=== PATIENT | female | born 1990 | race Caucasian/White ===

== ENCOUNTER 2019-01-06 21:34 | Inpatient (IN) | payer OTHER ==
[~2019-01-06] VITALS: Ht 167.6 cm; Wt 92.5 kg
[~2019-01-06 21:34] MED LIST: FERR27TA PO; PREN1TAB49 PO
--- NOTE | 2019-01-06 22:27 | ERD ---
ER Documentation Chief Complaint Chief Complaint s/p delivery 4weeks ago. c/o right breast pain and fever. HPI The patient is a 28-year-old female, presenting to the ER because of acute right breast pain/redness for 1day. She complains of fever today, denies facial pain, ear pain, sore throat, cough, nasal congestion, neck pain, chest pain, dyspnea, abdominal pain, vomiting, dysuria, diarrhea. She does not smoke nor drink. She had a spontaneous vaginal delivery about 4 weeks ago and is currently breast feed her Past medical history: None Past surgical history: Appendectomy ROS All systems reviewed and are negative except as per history of present illness. Medications Home Meds Reported Medications Vits W-Ca,Fe,Fa(<1MG) () 1 Tab Tablet, 1 TAB PO DAILY 11/07/11 Discontinued Reported Medications Ferrous Sulfate (Iron) 1 Tab Tablet, 1 TAB PO DAILY 11/07/11 Allergies Allergies: Coded Allergies: No Known Allergy (Verified , 01/06/19) Physical Exam Vitals Vital Signs Date Temp Pulse Resp B/P (MAP) Pulse Ox O2 O2 Flow FiO2 Time Delivery Rate 01/07/19 99.0 103 18 99/56 (70) 96 Room Air 02:10 01/07/19 99.3 96 18 100/56 97 Room Air 01:48 (71) 01/07/19 101.5 104 18 123/92 96 Room Air 01:02 (102) 01/06/19 104.1 23:21 01/06/19 104.1 23:21 01/06/19 104.1 113 20 160/84 100 Room Air 23:02 (109) 01/06/19 104.5 130 20 134/64 96 21:37 (87) Physical Exam Const: No acute distress. Head: Atraumatic. Eyes: Normal Conjunctiva. ENT: Normal External Ears, Nose and Mouth. Bilateral tympanic membranes and oropharynx are within normal limit Neck: Full range of motion. No meningismus. Resp: Clear to auscultation bilaterally. Cardio: Regular tachycardic. Right breast is erythematous, warm to touch, normal milky nipple discharge Abd: Soft, non distended, normal bowel sounds, non tender. Skin: No petechiae or rashes. Back: No midline or flank tenderness. Ext: No cyanosis, or edema. Neur: Awake and alert. No focal deficit Psych: Normal Mood and Affect. Result Diagram: 01/06/19220901/06/192209 Results 24 hrs Laboratory Tests Test 01/06/19 22:05 01/06/19 22:10 01/07/19 00:12 POC Venous Lactate 1.4 mmol/L 1.0 mmol/L White Blood Count 19.9 10^3/ul Red Blood Count 4.60 10^6/ul Hemoglobin 13.5 g/dl Hematocrit 40.3 % Mean Corpuscular Volume 87.6 fl Mean Corpuscular Hemoglobin 29.3 pg Mean Corpuscular Hemoglobin Concent 33.5 g/dl Red Cell Distribution Width 13.1 % Platelet Count 282 10^3/UL Mean Platelet Volume 10.9 fl Immature Granulocytes % 0.900 % Neutrophils % 82.7 % Lymphocytes % 8.1 % Monocytes % 7.1 % Eosinophils % 0.8 % Basophils % 0.4 % Nucleated Red Blood Cells % 0.0 /100WBC Immature Granulocytes # 0.180 10^3/ul Neutrophils # 16.5 10^3/ul Lymphocytes # 1.6 10^3/ul Monocytes # 1.4 10^3/ul Eosinophils # 0.2 10^3/ul Basophils # 0.1 10^3/ul Nucleated Red Blood Cells # 0.0 10^3/ul Prothrombin Time 13.3 Sec Prothrombin Time Ratio 1.0 INR International Normalized Ratio 1.00 Activated Partial Thromboplast Time 31.9 Sec Urine Color YELLOW Urine Clarity SLIGHTLY CLOUDY Urine pH 6.0 Urine Specific [place] 1.024 Urine Ketones NEGATIVE mg/dL Urine Nitrite NEGATIVE mg/dL Urine Bilirubin NEGATIVE mg/dL Urine Urobilinogen 1+ mg/dL Urine Leukocyte Esterase 2+ [place] Urine Microscopic RBC 7 /HPF Urine Microscopic WBC 12 /HPF Urine Squamous Epithelial Cells FEW /HPF Urine Hemoglobin 2+ mg/dL Urine Glucose NEGATIVE mg/dL Urine Total Protein NEGATIVE mg/dl Sodium Level 139 mmol/L Potassium Level 3.8 mmol/L Chloride Level 103 mmol/L Carbon Dioxide Level 24 mmol/L Anion Gap 12 Blood Urea Nitrogen 15 mg/dl Creatinine 0.86 mg/dl Est Glomerular Filtrat Rate mL/min > 60 mL/min Glucose Level 121 mg/dl Calcium Level 9.0 mg/dl Total Bilirubin 0.2 mg/dl Direct Bilirubin 0.00 mg/dl Indirect Bilirubin 0.2 mg/dl Aspartate Amino Transf (AST/SGOT) 37 IU/L Alanine Aminotransferase (ALT/SGPT) 24 IU/L Alkaline Phosphatase 98 IU/L Troponin I < 0.012 ng/ml Total Protein 8.5 g/dl Albumin 4.5 g/dl Globulin 4.00 g/dl Albumin/Globulin Ratio 1.12 Current Medications Medications Dose Sig/Cecilia Start Time Status Last (Trade) Ordered Route PRN Stop Time Admin Dose Reason Admin 650 mg ONCE STAT 01/06/19 DC 01/06/19 Acetaminophen PO 23:13 01/06/19 23:21 (Tylenol 23:15 Tab) Sodium 1,780 ml BOLUS OVER 2 01/06/19 DC 01/06/19 Chloride HOURS STAT 23:13 01/06/19 23:22 (NS) IV* 23:15 Ibuprofen 600 mg ONCE ONCE 01/06/19 DC 01/06/19 (Motrin) PO 23:30 01/06/19 23:21 23:31 Ceftriaxone 50 ml @ ONCE ONCE 01/06/19 DC 01/06/19 Sodium 100 mls/hr IVPB 23:30 01/06/19 23:21 23:59 Sodium 1,000 ml @ Q1H ONCE 01/07/19 Chloride 1,000 mls/hr IV 02:30 01/07/19 03:29 Procedures/[place] [id number] Radiology Main Line: [phone] DIAGNOSTIC IMAGING REPORT Patient: CARLOS DAY : 1990 Age: 28 Sex: F MR #: [id number] DOS: 01/06/19 2313 Ordering MD: LAILA FIGUEROA MD Location: E/R Room/Bed: PROCEDURE: Chest. CLINICAL INDICATION: Chest pain. TECHNIQUE: Single frontal view of the chest was obtained. COMPARISON: None. FINDINGS: The cardiac silhouette is within normal limits. The aortic arch is unremarkable. There is no focal consolidation, vascular congestion or pleural effusion. There is no pneumothorax. IMPRESSION: No evidence for active cardiopulmonary disease. .Jim Coyne MD, MD Date Time Electronically viewed and signed by .Jim Coyne MD, on 01/07/2019 00:40 .T/ CC: LAILA FIGUEROA MD [id number] EKG: Read by emergency physician Rate/Rhythm: Sinus tachycardia 115 beats/min QRS, ST, T-waves: No ST elevation, no T inversion Impression: Abnormal EKG MEDICAL MAKING DECISION: The patient is a 28-year-old female, presenting with acute sepsis due to acute cystitis and acute right mastitis. She was treated with Motrin and Tylenol for fever, Rocephin 1 gm IV, IBW IVF (about 2L NS) but her BP was 100/56 after IVF, she was therefore treated with the 3rd L NS. Clinically she looks well, able to ambulate well independently and felt much better The differential diagnoses considered include but are not limited to pneumonia, UTI, pyelonephritis Departure Diagnosis: Primary Impression: Sepsis Additional Impressions: UTI (urinary tract infection) Mastitis Condition: Stable Comments I discussed the findings with the patient. I discussed the patient with the hospitalist Dr Majano at 3:05 am . who was made aware of the lab, the treatment, the patient condition. The patient is admitted to Tel Disclaimer: Inadvertent spelling and grammatical errors are likely due to EHR/dictation software use and do not reflect on the overall quality of patient care. Also, please note that the electronic time recorded on this note does not necessarily reflect the actual time of the patient encounter. LAILA FIGUEROA MD Jan 06, 2019 22:27
[2019-01-06] MEDS ORDERED: ACETAMINOPHEN 325 MG TAB PO STA (23:13)
[2019-01-06] MEDS ORDERED: SODIUM CHLORIDE 0.9% 1L BAG IV* STA (23:13)
[2019-01-06] MEDS ORDERED: IBUPROFEN 600 MG TAB PO ONE (23:30)
[2019-01-06] MEDS ORDERED: CEFTRIAXONE 1 GM/50 ML (PMX) 50 ML IVPB ONE (23:30)
[2019-01-07] VITALS (9 sets, daily range): BP systolic 105–129; BP diastolic 58–77; PULSE 60–105; RESP 19–20; Ht 167.6 cm; Wt 92.5 kg
[2019-01-07] MEDS ORDERED: SOD CHLORIDE 0.9% 1,000 ML IV ONE (02:30)
[2019-01-07] MEDS ORDERED: ACETAMINOPHEN 325 MG TAB PO PRN (03:30)
[2019-01-07] MEDS ORDERED: VANCOMYCIN 1 GM (PMX) 250 ML IVPB ONE (03:30)
[2019-01-07] MEDS ORDERED: DOCUSATE SODIUM 100 MG CAP PO PRN (03:30)
[2019-01-07] MEDS ORDERED: ONDANSETRON 4 MG INJ IV PRN (03:30)
[2019-01-07] MEDS ORDERED: IBUPROFEN 600 MG TAB PO PRN (03:30)
[2019-01-07] MEDS ORDERED: BISACODYL (EC) 5 MG TAB PO PRN (03:30)
[2019-01-07] MEDS ORDERED: NACL 0.9% 3 ML SYG IV SCH (03:30)
--- NOTE | 2019-01-07 03:48 | HP ---
Date/Time of Note Date/Time of Note DATE: 01/07/19 TIME: 03:42 Assessment/Plan VTE Prophylaxis SCD applied (from Nsg): Yes Pharmacological prophylaxis: NA/contraindicated Pharm contraindication: low risk/ambulating Lines/Catheters IV Catheter Type (from Nrsg): Saline Lock Assessment/Plan Hospital Course This is a 28-year-old female being admitted to the telemetry floor for: #1 septic shock: Initially patient presented with normal blood pressures however through her hospital stay she did go hypotensive. She is currently receiving IV fluid bolus and her blood pressures are improving. We will continue normal saline bolus and reassess blood pressures. Monitor closely for pressor support. Cultures are pending. She did receive ceftriaxone in the ED given her borderline blood pressures I will start her on vancomycin as well. #2 mastitis: Vancomycin given patient's low blood pressure, encouraged breast pumping #3 urinary tract infection: Ceftriaxone 1 g every 24 hours #4 : Encourage breast-feeding/pumping #5 DVT and GI prophylaxis: SCDs, no GI prophylaxis indicated Further treatment strategy will be provided as per the clinical course. Result Diagram: 01/06/19 2210 01/06/19 2210 Results 24hrs Laboratory Tests Test 01/06/19 22:05 01/06/19 22:10 01/07/19 00:12 POC Venous Lactate 1.4 1.0 White Blood Count 19.9 #H Red Blood Count 4.60 Hemoglobin 13.5 Hematocrit 40.3 Mean Corpuscular Volume 87.6 Mean Corpuscular Hemoglobin 29.3 Mean Corpuscular 33.5 Hemoglobin Concent Red Cell Distribution Width 13.1 Platelet Count 282 Mean Platelet Volume 10.9 H Immature Granulocytes % 0.900 H Neutrophils % 82.7 H Lymphocytes % 8.1 L Monocytes % 7.1 Eosinophils % 0.8 Basophils % 0.4 Nucleated Red Blood Cells % 0.0 Immature Granulocytes # 0.180 H Neutrophils # 16.5 H Lymphocytes # 1.6 Monocytes # 1.4 H Eosinophils # 0.2 Basophils # 0.1 Nucleated Red Blood Cells # 0.0 Prothrombin Time 13.3 Prothrombin Time Ratio 1.0 INR International 1.00 Normalized Ratio Activated Partial Thromboplast 31.9 Time Urine Color YELLOW Urine Clarity SLIGHTLY CLOUDY A Urine pH 6.0 Urine Specific [place] 1.024 Urine Ketones NEGATIVE Urine Nitrite NEGATIVE Urine Bilirubin NEGATIVE Urine Urobilinogen 1+ H Urine Leukocyte Esterase 2+ H Urine Microscopic RBC 7 H Urine Microscopic WBC 12 H Urine Squamous Epithelial Cells FEW Urine Hemoglobin 2+ H Urine Glucose NEGATIVE Urine Total Protein NEGATIVE Sodium Level 139 Potassium Level 3.8 Chloride Level 103 Carbon Dioxide Level 24 Anion Gap 12 Blood Urea Nitrogen 15 Creatinine 0.86 Est Glomerular Filtrat > 60 Rate mL/min Glucose Level 121 Calcium Level 9.0 Total Bilirubin 0.2 Direct Bilirubin 0.00 Indirect Bilirubin 0.2 Aspartate Amino 37 Transf (AST/SGOT) Alanine 24 Aminotransferase (ALT/SGPT) Alkaline Phosphatase 98 Troponin I < 0.012 Total Protein 8.5 H Albumin 4.5 Globulin 4.00 H Albumin/Globulin Ratio 1.12 HPI/ROS Admit Date/Time Admit Date/Time Hx of Present Illness chief complaint: Fever, breast pain This is a 28-year-old female who is currently breast-feeding who presented today with 1 day of fevers and breast pain. Patient reports that she started expressing fevers at home starting on Wednesday. She also noticed some redness on her right breast as well as some pain. She is currently breast-feeding. Denies any chest pain nausea vomiting or shortness of breath. Denies any urinary frequency or urgency. Allergies: NKDA Medications: None ROS Const: As per HPI Eyes : No pain discharge or redness or change in visual acuity ENT: No pain, sore throat, congestion, congestion, dysphagia or discharge Respiratory: No shortness of breath, cough, sputum, wheezing, or pleuritic pain Cardiovascular: No chest pain, palpitation, PND, or edema GI : no change in appetite, abdominal pain, nausea, vomiting, diarrhea, constipation, or change in the color his stool Genitourinary: No dysuria, hematuria, flank pain , discharge or CVA tenderness Musculoskeletal: No joint pain, back pain, neck pain, restricted range of motion in neck or joints Skin: As per HPI Neuro: No headache, dizziness, syncope, seizure, focal weakness Endocrine: No polyuria, polydipsia, temperature intolerance Psych: No hallucination, depression, anxiety or suicidal ideation PMH/Family/Social Past Medical History Medical History: no pertinent history Medications Current Medications Vancomycin HCl 250 ml @ 125 mls/hr ONCE ONCE IVPB ; Start 01/07/19 at 03:30; Stop 01/07/19 at 05:29 Sodium Chloride 1,000 ml @ 100 mls/hr Q10H IV ; Start 01/07/19 at 03:23; Stop 01/07/19 at 23:22 IV Flush (NS 3 ml) 3 ml PER PROTOCOL IV ; Start 01/07/19 at 03:30 Ondansetron HCl (Zofran Inj) 4 mg Q6H PRN IV NAUSEA/VOMITING; Start 01/07/19 at 03:30 Acetaminophen (Tylenol Tab) 650 mg Q6H PRN PO .PAIN 1-3 OR TEMP; Start 01/07/19 at 03:30 Ibuprofen (Motrin) 600 mg Q6H PRN PO .PAIN 1-3 OR TEMP; Start 01/07/19 at 03:30 Docusate Sodium (Colace) 100 mg Q12H PRN PO .CONSTIPATION; Start 01/07/19 at 03:30 Bisacodyl (Dulcolax) 5 mg DAILY PRN PO .CONSTIPATION; Start 01/07/19 at 03:30 Ceftriaxone Sodium 50 ml @ 100 mls/hr Q24H IVPB ; Start 01/07/19 at 22:00 Coded Allergies: No Known Allergy (Verified , 01/06/19) Past Surgical History Past Surgical Hx: appendectomy Family History Significant Family History: no pertinent family hx Social History Alcohol Use: none Smoking Status: Never smoker Drug Use: none Exam/Review of Systems Vital Signs Vitals Vital Signs Date Temp Pulse Resp B/P (MAP) Pulse Ox O2 O2 Flow FiO2 Time Delivery Rate 01/07/19 99.0 103 18 99/56 (70) 96 Room Air 02:10 Intake and Output 01/06/19 01/06/19 01/07/19 1515:00 23:00 07:00 IntakeIntake Total 1780 ml BalanceBalance 1780 ml Exam Exam General: Patient currently lying in bed in no acute distress HEENT: Atraumatic, normocephalic. The pupils are equal, round and reactive. Extraocular motor are intact Neck: Supple with full range of motion. No rigidity or meningismus Chest: Nontender Lungs: Clear to auscultation bilaterally no crackles rales or wheezing Heart: Sinus tachycardia Abdomen: Soft , nontender, nondistended , bowel sounds are present. No guarding no rebound tenderness , No masses or organomegaly. No costovertebral temporal angle mass Extremities: Normal to inspection, no edema no cyanosis Skin: Right breast: Mild erythema noted at the right lateral breast at approximately 10 o'clock position. Mild tenderness palpation, no fluctuance appreciated Neurologic: Normal mental status, speech normal, cranial nerves II through XII are intact, motor and sensory are intact, no focal weakness area LASHAUN HOLM Jan 07, 2019 03:47
[2019-01-07] MEDS: SOD CHLORIDE 0.9% 1,000 ML IV SCH ×3 (07:04→15:50)
[2019-01-07] MEDS ORDERED: VANCOMYCIN IV PER PHARMACY XX SCH (10:30)
--- NOTE | 2019-01-07 10:35 | PN ---
Date/Time of Note Date/Time of Note DATE: 01/07/19 TIME: 10:33 Assessment/Plan VTE Prophylaxis SCD applied (from Nsg): Yes Pharmacological prophylaxis: NA/contraindicated Pharm contraindication: low risk/ambulating Lines/Catheters IV Catheter Type (from Nrsg): Peripheral IV Assessment/Plan Hospital Course SUBJECTIVE: Continues to complain of fevers and chills. Continues to complain of right breast pain. Complains of some dysuria. OBJECTIVE: Physical Exam General: Adequately build 28 year-old female lying in bed in no apparent distress. HEENT: Normocephalic, atraumatic. Eyes: Anicteric sclerae, conjunctivae clear. ENT: Nasal septum midline, oral mucosa moist. Neck supple, no JVD noticed. Respiratory: Bilaterally clear breath sounds. No use of accessory muscles of respiration. No adventitious breath sounds. Cardiovascular: S1, S2 heard. Regular rate and rhythm. Abdomen: Soft, nontender, and nondistended. Bowel sounds positive in all 4 quadrants. Genitourinary: Deferred. Extremities: No cyanosis, no clubbing, no edema. Peripheral pulses palpable. Neurologic: Cranial nerves II through XII grossly intact. The patient is awake, alert, and oriented. Breast (examined in the presence of the patient's ): Right breast erythema 10 o'clock position with tenderness to touch. No fluctuance noted. Breast milk discharge from the right nipple. Labs & Vitals per chart ASSESSMENT & PLAN 28-year-old female with no comorbidities other than obesity who came to the emergency room with chief complaint of fevers and chills along with right breast pain and redness. The patient delivered her baby on 12/09/2018 with normal vaginal delivery. The patient is currently breast-feeding her baby. The patient was noticed to have sepsis with leukocytosis, tachycardia, and febrile illness with positive urinalysis and evidence of right-sided mastitis. The patient was admitted to inpatient setting for further treatment and evaluation. 1. Severe sepsis with underlying leukocytosis, tachycardia, and febrile illness, present on admission. -Etiology could be possible secondary to underlying right-sided mastitis. -Continue empiric antimicrobials. -Andino cultures pending. -Influenza A and B negative. 2. Lactational mastitis. -Continue antimicrobials including coverage for MRSA since the patient has evidence of severe sepsis. -Pump and dump. 3. Positive urinalysis. -Continue empiric antimicrobials. -Await final cultures. 4. Obesity. -BMI more than 32 kg/m. -Will advise weight reduction. 5. Fluids, electrolytes, and nutrition. -Regular diet -Continue IV fluids. 6. DVT prophylaxis -Bilateral SCDs. 7. Plan per -Continue empiric antimicrobials. -Await andino cultures. -Await clinical improvement. The patient was seen in collaboration with Dr. Samuels. Result Diagram: 01/07/19 0436 01/07/19 0436 Results 24hrs Laboratory Tests Test 01/06/19 22:05 01/06/19 22:10 01/07/19 00:12 01/07/19 04:36 POC Venous Lactate 1.4 1.0 White Blood Count 19.9 #H 15.0 #H Red Blood Count 4.60 3.91 L Hemoglobin 13.5 11.4 L Hematocrit 40.3 34.4 L Mean Corpuscular 87.6 88.0 Volume Mean Corpuscular 29.3 29.2 Hemoglobin Mean Corpuscular 33.5 33.1 Hemoglobin Concent Red Cell 13.1 13.0 Distribution Width Platelet Count 282 213 # Mean Platelet 10.9 H 9.9 Volume Immature 0.900 H 0.700 H Granulocytes % Neutrophils % 82.7 H 80.1 H Lymphocytes % 8.1 L 11.3 L Monocytes % 7.1 6.1 Eosinophils % 0.8 1.5 Basophils % 0.4 0.3 Nucleated Red 0.0 0.0 Blood Cells % Immature 0.180 H 0.110 H Granulocytes # Neutrophils # 16.5 H 12.0 H Lymphocytes # 1.6 1.7 Monocytes # 1.4 H 0.9 Eosinophils # 0.2 0.2 Basophils # 0.1 0.1 Nucleated Red 0.0 0.0 Blood Cells # Prothrombin Time 13.3 Prothrombin Time 1.0 Ratio INR International 1.00 Normalized Ratio Activated 31.[address] Time Urine Color YELLOW Urine Clarity SLIGHTLY CLOUDY A Urine pH 6.0 Urine Specific 1.024 [place] Urine Ketones NEGATIVE Urine Nitrite NEGATIVE Urine Bilirubin NEGATIVE Urine Urobilinogen 1+ H Urine Leukocyte 2+ H Esterase Urine Microscopic 7 H RBC Urine Microscopic 12 H WBC Urine Squamous FEW Epithelial Cells Urine Hemoglobin 2+ H Urine Glucose NEGATIVE Urine Total NEGATIVE Protein Sodium Level 139 143 Potassium Level 3.8 3.9 Chloride Level 103 114 H Carbon Dioxide 24 21 Level Anion Gap 12 8 Blood Urea 15 11 Nitrogen Creatinine 0.86 0.75 Est Glomerular > 60 > 60 Filtrat Rate mL/min Glucose Level 121 99 Calcium Level 9.0 8.0 L Total Bilirubin 0.2 0.4 Direct Bilirubin 0.00 0.00 Indirect Bilirubin 0.2 0.4 Aspartate Amino 37 24 Transf (AST/SGOT) Alanine 24 35 Aminotransferase ( ALT/SGPT) Alkaline 98 66 Phosphatase Troponin I < 0.012 Total Protein 8.5 H 5.8 #L Albumin 4.5 3.0 #L Globulin 4.00 H 2.80 Albumin/Globulin 1.12 1.07 Ratio Lactic Acid Level 0.6 Exam/Review of Systems Exam Vitals Vital Signs Date Temp Pulse Resp B/P (MAP) Pulse Ox O2 O2 Flow FiO2 Time Delivery Rate 01/07/19 103.0 10:17 01/07/19 105 08:00 01/07/19 19 129/77 96 07:23 (94) 01/07/19 Nasal 06:30 Cannula Intake and Output 01/06/19 01/06/19 01/07/19 1414:59 22:59 06:59 IntakeIntake Total 1780 ml BalanceBalance 1780 ml Results Results 24hrs Laboratory Tests Test 01/06/19 22:05 01/06/19 22:10 01/07/19 00:12 01/07/19 04:36 POC Venous Lactate 1.4 1.0 White Blood Count 19.9 #H 15.0 #H Red Blood Count 4.60 3.91 L Hemoglobin 13.5 11.4 L Hematocrit 40.3 34.4 L Mean Corpuscular 87.6 88.0 Volume Mean Corpuscular 29.3 29.2 Hemoglobin Mean Corpuscular 33.5 33.1 Hemoglobin Concent Red Cell 13.1 13.0 Distribution Width Platelet Count 282 213 # Mean Platelet 10.9 H 9.9 Volume Immature 0.900 H 0.700 H Granulocytes % Neutrophils % 82.7 H 80.1 H Lymphocytes % 8.1 L 11.3 L Monocytes % 7.1 6.1 Eosinophils % 0.8 1.5 Basophils % 0.4 0.3 Nucleated Red 0.0 0.0 Blood Cells % Immature 0.180 H 0.110 H Granulocytes # Neutrophils # 16.5 H 12.0 H Lymphocytes # 1.6 1.7 Monocytes # 1.4 H 0.9 Eosinophils # 0.2 0.2 Basophils # 0.1 0.1 Nucleated Red 0.0 0.0 Blood Cells # Prothrombin Time 13.3 Prothrombin Time 1.0 Ratio INR International 1.00 Normalized Ratio Activated 31.[address] Time Urine Color YELLOW Urine Clarity SLIGHTLY CLOUDY A Urine pH 6.0 Urine Specific 1.024 [place] Urine Ketones NEGATIVE Urine Nitrite NEGATIVE Urine Bilirubin NEGATIVE Urine Urobilinogen 1+ H Urine Leukocyte 2+ H Esterase Urine Microscopic 7 H RBC Urine Microscopic 12 H WBC Urine Squamous FEW Epithelial Cells Urine Hemoglobin 2+ H Urine Glucose NEGATIVE Urine Total NEGATIVE Protein Sodium Level 139 143 Potassium Level 3.8 3.9 Chloride Level 103 114 H Carbon Dioxide 24 21 Level Anion Gap 12 8 Blood Urea 15 11 Nitrogen Creatinine 0.86 0.75 Est Glomerular > 60 > 60 Filtrat Rate mL/min Glucose Level 121 99 Calcium Level 9.0 8.0 L Total Bilirubin 0.2 0.4 Direct Bilirubin 0.00 0.00 Indirect Bilirubin 0.2 0.4 Aspartate Amino 37 24 Transf (AST/SGOT) Alanine 24 35 Aminotransferase ( ALT/SGPT) Alkaline 98 66 Phosphatase Troponin I < 0.012 Total Protein 8.5 H 5.8 #L Albumin 4.5 3.0 #L Globulin 4.00 H 2.80 Albumin/Globulin 1.12 1.07 Ratio Lactic Acid Level 0.6 Medications Medication Current Medications Sodium Chloride 1,000 ml @ 100 mls/hr Q10H IV Last administered on 01/07/19at 07:04; Admin Dose 100 MLS/HR; Start 01/07/19 at 03:23; Stop 01/07/19 at 23:22 IV Flush (NS 3 ml) 3 ml PER PROTOCOL IV ; Start 01/07/19 at 03:30 Ondansetron HCl (Zofran Inj) 4 mg Q6H PRN IV NAUSEA/VOMITING; Start 01/07/19 at 03:30 Acetaminophen (Tylenol Tab) 650 mg Q6H PRN PO .PAIN 1-3 OR TEMP Last administered on 01/07/19at 10:17; Admin Dose 650 MG; Start 01/07/19 at 03:30 Ibuprofen (Motrin) 600 mg Q6H PRN PO .PAIN 1-3 OR TEMP; Start 01/07/19 at 03:30 Docusate Sodium (Colace) 100 mg Q12H PRN PO .CONSTIPATION; Start 01/07/19 at 03:30 Bisacodyl (Dulcolax) 5 mg DAILY PRN PO .CONSTIPATION; Start 01/07/19 at 03:30 Vancomycin HCl (Vanco Iv Per Pharmacy) VANCOMYCIN PER PHARMACY PER PROTOCOL XX ; Start 01/07/19 at 10:30; Status UNV Cefepime HCl 50 ml @ 100 mls/hr Q12 IVPB ; Start 01/07/19 at 21:00; Status UNV FARHAD WINSTON NP Jan 07, 2019 10:35
[2019-01-07] MEDS ORDERED: SOD CHLORIDE 0.9% 500 ML IV ONE ×2 (12:30→20:30)
[2019-01-07] MEDS: VANCOMYCIN 1 GM 250 ML IVPB SCH (15:55)
[2019-01-07] MEDS ORDERED: ACETAMINOPHEN 1000MG/100ML IV 100 ML IVPB ONE (18:00)
[2019-01-07] MEDS ORDERED: CEFEPIME 2GM/50 ML (PMX) 50 ML IVPB SCH (21:00)
[2019-01-07] MEDS ORDERED: CEFTRIAXONE 1 GM/50 ML (PMX) 50 ML IVPB SCH (22:00)
[2019-01-08] VITALS (9 sets, daily range): BP systolic 105–132; BP diastolic 55–89; PULSE 55–106; RESP 18–20
[2019-01-08] MEDS: VANCOMYCIN 1 GM 250 ML IVPB SCH ×3 (00:45→16:42)
[2019-01-08] MEDS: SOD CHLORIDE 0.9% 1,000 ML IV SCH ×3 (03:30→21:52)
--- NOTE | 2019-01-08 10:12 | PN ---
Date/Time of Note Date/Time of Note DATE: 01/08/19 TIME: 10:10 Assessment/Plan VTE Prophylaxis Risk score (from Nsg)>0 risk: 1 SCD applied (from Ns): No SCD contraindicated: low risk/ambulating Pharmacological prophylaxis: NA/contraindicated Pharm contraindication: low risk/ambulating Lines/Catheters IV C[facility] Type (from [facility]): Peripheral IV Urinary Cath still in place: No Assessment/Plan Hospital Course SUBJECTIVE: "Feeling better." Continues to complain of right breast pain. Complains of some dysuria. OBJECTIVE: Physical Exam General: Adequately build 28 year-old female lying in bed in no apparent distress. HEENT: Normocephalic, atraumatic. Eyes: Anicteric sclerae, conjunctivae clear. ENT: Nasal septum midline, oral mucosa moist. Neck supple, no JVD noticed. Respiratory: Bilaterally clear breath sounds. No use of accessory muscles of respiration. No adventitious breath sounds. Cardiovascular: S1, S2 heard. Regular rate and rhythm. Abdomen: Soft, nontender, and nondistended. Bowel sounds positive in all 4 quadrants. Genitourinary: Deferred. Extremities: No cyanosis, no clubbing, no edema. Peripheral pulses palpable. Neurologic: Cranial nerves II through XII grossly intact. The patient is awake, alert, and oriented. Breast (examined in the presence of a female RN as birth certificate clerk): Right breast erythema with tenderness to touch. No fluctuance noted. Labs & Vitals per chart ASSESSMENT & PLAN 28-year-old female with no comorbidities other than obesity who came to the emergency room with chief complaint of fevers and chills along with right breast pain and redness. The patient delivered her baby on 12/09/2018 with normal vaginal delivery. The patient is currently breast-feeding her baby. The patient was noticed to have sepsis with leukocytosis, tachycardia, and febrile illness with positive urinalysis and evidence of right-sided mastitis. The patient was admitted to inpatient setting for further treatment and evaluation. 1. Severe sepsis with underlying leukocytosis, tachycardia, and febrile illness, present on admission. -Etiology could be possible secondary to underlying right-sided mastitis. -Continue empiric antimicrobials. -Kemp cultures negative so far. -Influenza A and B negative. -ID following. 2. Lactational mastitis. -Continue antimicrobials including coverage for MRSA since the patient has evidence of severe sepsis. -Pump and dump. -US breasts. -Culture of breast milk. -ID following. 3. Positive urinalysis. -Final cultures negative. 4. Obesity. -BMI more than 32 kg/m. -Will advise weight reduction. 5. Fluids, electrolytes, and nutrition. -Regular diet -Continue IV fluids. 6. DVT prophylaxis -Bilateral SCDs. 7. Plan per -Continue empiric antimicrobials. -Await clinical improvement. -Transfer to Med/Surg. The patient was seen in collaboration with Dr. Samuels. Result Diagram: 01/08/1970201/08/19702 Results 24hrs Laboratory Tests Test 01/07/19 19:15 01/08/19 07:03 Lactic Acid Level 2.5 *H White Blood Count 12.3 H Red Blood Count 3.94 L Hemoglobin 11.5 L Hematocrit 34.9 L Mean Corpuscular Volume 88.6 Mean Corpuscular Hemoglobin 29.2 Mean Corpuscular Hemoglobin Concent 33.0 Red Cell Distribution Width 13.2 Platelet Count 203 Mean Platelet Volume 10.9 H Immature Granulocytes % 0.600 H Neutrophils % 65.5 Lymphocytes % 16.9 Monocytes % 9.9 Eosinophils % 6.7 Basophils % 0.4 Nucleated Red Blood Cells % 0.0 Immature Granulocytes # 0.080 H Neutrophils # 8.1 H Lymphocytes # 2.1 Monocytes # 1.2 H Eosinophils # 0.8 H Basophils # 0.1 Nucleated Red Blood Cells # 0.0 Sodium Level 144 Potassium Level 4.3 Chloride Level 114 H Carbon Dioxide Level 23 Anion Gap 7 Blood Urea Nitrogen 7 Creatinine 0.64 Est Glomerular Filtrat Rate mL/min > 60 Glucose Level 85 Calcium Level 8.8 Phosphorus Level 3.3 Magnesium Level 1.9 Total Bilirubin 0.2 Direct Bilirubin 0.00 Indirect Bilirubin 0.2 Aspartate Amino Transf (AST/SGOT) 32 Alanine Aminotransferase (ALT/SGPT) 48 Alkaline Phosphatase 71 Total Protein 6.4 Albumin 3.2 L Globulin 3.20 Albumin/Globulin Ratio 1.00 Exam/Review of Systems Exam Vitals Vital Signs Date Temp Pulse Resp B/P (MAP) Pulse Ox O2 O2 Flow FiO2 Time Delivery Rate 01/08/19 106 09:34 01/08/19 98.0 20 110/60 94 08:26 (77) 01/07/19 Nasal 06:30 Cannula Intake and Output 01/07/19 01/07/19 01/08/19 1414:59 22:59 06:59 IntakeIntake Total 750 ml 2150 ml 1700 ml BalanceBalance 750 ml 2150 ml 1700 ml Results Results 24hrs Laboratory Tests Test 01/07/19 19:15 01/08/19 07:03 Lactic Acid Level 2.5 *H White Blood Count 12.3 H Red Blood Count 3.94 L Hemoglobin 11.5 L Hematocrit 34.9 L Mean Corpuscular Volume 88.6 Mean Corpuscular Hemoglobin 29.2 Mean Corpuscular Hemoglobin Concent 33.0 Red Cell Distribution Width 13.2 Platelet Count 203 Mean Platelet Volume 10.9 H Immature Granulocytes % 0.600 H Neutrophils % 65.5 Lymphocytes % 16.9 Monocytes % 9.9 Eosinophils % 6.7 Basophils % 0.4 Nucleated Red Blood Cells % 0.0 Immature Granulocytes # 0.080 H Neutrophils # 8.1 H Lymphocytes # 2.1 Monocytes # 1.2 H Eosinophils # 0.8 H Basophils # 0.1 Nucleated Red Blood Cells # 0.0 Sodium Level 144 Potassium Level 4.3 Chloride Level 114 H Carbon Dioxide Level 23 Anion Gap 7 Blood Urea Nitrogen 7 Creatinine 0.64 Est Glomerular Filtrat Rate mL/min > 60 Glucose Level 85 Calcium Level 8.8 Phosphorus Level 3.3 Magnesium Level 1.9 Total Bilirubin 0.2 Direct Bilirubin 0.00 Indirect Bilirubin 0.2 Aspartate Amino Transf (AST/SGOT) 32 Alanine Aminotransferase (ALT/SGPT) 48 Alkaline Phosphatase 71 Total Protein 6.4 Albumin 3.2 L Globulin 3.20 Albumin/Globulin Ratio 1.00 Medications Medication Current Medications IV Flush (NS 3 ml) 3 ml PER PROTOCOL IV ; Start 01/07/19 at 03:30 Ondansetron HCl (Zofran Inj) 4 mg Q6H PRN IV NAUSEA/VOMITING; Start 01/07/19 at 03:30 Acetaminophen (Tylenol Tab) 650 mg Q6H PRN PO .PAIN 1-3 OR TEMP Last administered on 01/07/19at 10:17; Admin Dose 650 MG; Start 01/07/19 at 03:30 Ibuprofen (Motrin) 600 mg Q6H PRN PO .PAIN 1-3 OR TEMP Last administered on 01/07/19at 15:46; Admin Dose 600 MG; Start 01/07/19 at 03:30 Docusate Sodium (Colace) 100 mg Q12H PRN PO .CONSTIPATION; Start 01/07/19 at 03:30 Bisacodyl (Dulcolax) 5 mg DAILY PRN PO .CONSTIPATION; Start 01/07/19 at 03:30 Vancomycin HCl (Vanco Iv Per Pharmacy) VANCOMYCIN PER PHARMACY PER PROTOCOL XX ; Start 01/07/19 at 10:30 Vancomycin HCl 250 ml @ 125 mls/hr Q8H IVPB Last administered on 01/08/19at 07:33; Admin Dose 125 MLS/HR; Start 01/07/19 at 16:00 Miscellaneous Information (*Rx Drug Level Order Reminder*) VANC TROUGH @ 1,500 ONCE ONCE XX ; Start 01/08/19 at 15:00; Stop 01/08/19 at 15:01 Sodium Chloride 1,000 ml @ 100 mls/hr Q10H IV Last administered on 01/08/19at 03:30; Admin Dose 100 MLS/HR; Start 01/07/19 at 16:00 Ampicillin Sodium/ Sulbactam Sodium 100 ml @ 100 mls/hr Q6 IVPB ; Start 01/08/19 at 12:00 FARHAD WINSTON NP Jan 08, 2019 10:11
--- NOTE | 2019-01-08 10:42 | CONS ---
Assessment/Plan Assessment/Plan Hospital Course (Demo Recall) 1) R mastitis change cefepime to unasyn to cover for anaerobes continue with iv vanco get cx from milk/discharge from R breast get nasal swab for mrsa get u/s of R breast to look for abscess, if present she will need a surgical consult Consultation Date/Type/Reason Admit Date/Time Date of Consultation: Jan 08, 2019 Type of Consult ID Date/Time of Note DATE: 01/08/19 TIME: 10:36 Hx of Present Illness pt reports one day of R breast pain and fevers [employer] she has a 4 week old who has had trouble with latching on she has noticed cracking at the nipple site no v, n, d no SOB, cough, dysuria she was feeling healthy otherwise Past Medical History Medical History: no pertinent history Home Meds Reported Medications Vits W-Ca,Fe,Fa(<1MG) () 1 Tab Tablet, 1 TAB PO DAILY 11/07/11 Discontinued Reported Medications Ferrous Sulfate (Iron) 1 Tab Tablet, 1 TAB PO DAILY 11/07/11 Medications Current Medications IV Flush (NS 3 ml) 3 ml PER PROTOCOL IV ; Start 01/07/19 at 03:30 Ondansetron HCl (Zofran Inj) 4 mg Q6H PRN IV NAUSEA/VOMITING; Start 01/07/19 at 03:30 Acetaminophen (Tylenol Tab) 650 mg Q6H PRN PO .PAIN 1-3 OR TEMP Last admin istered on 01/07/19at 10:17; Admin Dose 650 MG; Start 01/07/19 at 03:30 Ibuprofen (Motrin) 600 mg Q6H PRN PO .PAIN 1-3 OR TEMP Last administered on 01/07/19at 15:46; Admin Dose 600 MG; Start 01/07/19 at 03:30 Docusate Sodium (Colace) 100 mg Q12H PRN PO .CONSTIPATION; Start 01/07/19 at 03:30 Bisacodyl (Dulcolax) 5 mg DAILY PRN PO .CONSTIPATION; Start 01/07/19 at 03:30 Vancomycin HCl (Vanco Iv Per Pharmacy) VANCOMYCIN PER PHARMACY PER PROTOCOL XX ; Start 01/07/19 at 10:30 Vancomycin HCl 250 ml @ 125 mls/hr Q8H IVPB Last administered on 01/08/19at 07:33; Admin Dose 125 MLS/HR; Start 01/07/19 at 16:00 Miscellaneous Information (*Rx Drug Level Order Reminder*) VANC TROUGH @ 1,500 ONCE ONCE XX ; Start 01/08/19 at 15:00; Stop 01/08/19 at 15:01 Sodium Chloride 1,000 ml @ 100 mls/hr Q10H IV Last administered on 01/08/19at 03:30; Admin Dose 100 MLS/HR; Start 01/07/19 at 16:00 Ampicillin Sodium/ Sulbactam Sodium 100 ml @ 100 mls/hr Q6 IVPB ; Start 01/08/19 at 12:00 Allergies: Coded Allergies: No Known Allergy (Verified , 01/06/19) Past Surgical History Past Surgical Hx: appendectomy Social History Alcohol Use: none Smoking Status: Never smoker Drug Use: none Exam/Review of Systems Exam Vitals Vital Signs Date Temp Pulse Resp B/P (MAP) Pulse Ox O2 O2 Flow FiO2 Time Delivery Rate 01/08/19 106 09:34 01/08/19 98.0 20 110/60 94 08:26 (77) 01/07/19 Nasal 06:30 Cannula Intake and Output 01/07/19 01/07/19 01/08/19 1515:00 23:00 07:00 IntakeIntake Total 750 ml 2200 ml 1650 ml BalanceBalance 750 ml 2200 ml 1650 ml Constitutional: alert, oriented Eyes: nl sclera ENMT: mucosa pink and moist Respiratory: clear to auscultation Cardiovascular: regular rate and rhythm Gastrointestinal: soft, non-tender Skin: other (firmness to RL quadrat of R breast, no redness noted) Results Result Diagram: 01/08/1970201/08/19702 Results 24hrs Laboratory Tests Test 01/07/19 19:15 01/08/19 07:03 Lactic Acid Level 2.5 *H White Blood Count 12.3 H Red Blood Count 3.94 L Hemoglobin 11.5 L Hematocrit 34.9 L Mean Corpuscular Volume 88.6 Mean Corpuscular Hemoglobin 29.2 Mean Corpuscular Hemoglobin Concent 33.0 Red Cell Distribution Width 13.2 Platelet Count 203 Mean Platelet Volume 10.9 H Immature Granulocytes % 0.600 H Neutrophils % 65.5 Lymphocytes % 16.9 Monocytes % 9.9 Eosinophils % 6.7 Basophils % 0.4 Nucleated Red Blood Cells % 0.0 Immature Granulocytes # 0.080 H Neutrophils # 8.1 H Lymphocytes # 2.1 Monocytes # 1.2 H Eosinophils # 0.8 H Basophils # 0.1 Nucleated Red Blood Cells # 0.0 Sodium Level 144 Potassium Level 4.3 Chloride Level 114 H Carbon Dioxide Level 23 Anion Gap 7 Blood Urea Nitrogen 7 Creatinine 0.64 Est Glomerular Filtrat Rate mL/min > 60 Glucose Level 85 Calcium Level 8.8 Phosphorus Level 3.3 Magnesium Level 1.9 Total Bilirubin 0.2 Direct Bilirubin 0.00 Indirect Bilirubin 0.2 Aspartate Amino Transf (AST/SGOT) 32 Alanine Aminotransferase (ALT/SGPT) 48 Alkaline Phosphatase 71 Total Protein 6.4 Albumin 3.2 L Globulin 3.20 Albumin/Globulin Ratio 1.00 Medications Medication Current Medications IV Flush (NS 3 ml) 3 ml PER PROTOCOL IV ; Start 01/07/19 at 03:30 Ondansetron HCl (Zofran Inj) 4 mg Q6H PRN IV NAUSEA/VOMITING; Start 01/07/19 at 03:30 Acetaminophen (Tylenol Tab) 650 mg Q6H PRN PO .PAIN 1-3 OR TEMP Last a dministered on 01/07/19at 10:17; Admin Dose 650 MG; Start 01/07/19 at 03:30 Ibuprofen (Motrin) 600 mg Q6H PRN PO .PAIN 1-3 OR TEMP Last administered on 01/07/19at 15:46; Admin Dose 600 MG; Start 01/07/19 at 03:30 Docusate Sodium (Colace) 100 mg Q12H PRN PO .CONSTIPATION; Start 01/07/19 at 03:30 Bisacodyl (Dulcolax) 5 mg DAILY PRN PO .CONSTIPATION; Start 01/07/19 at 03:30 Vancomycin HCl (Vanco Iv Per Pharmacy) VANCOMYCIN PER PHARMACY PER PROTOCOL XX ; Start 01/07/19 at 10:30 Vancomycin HCl 250 ml @ 125 mls/hr Q8H IVPB Last administered on 01/08/19at 07:33; Admin Dose 125 MLS/HR; Start 01/07/19 at 16:00 Miscellaneous Information (*Rx Drug Level Order Reminder*) VANC TROUGH @ 1,500 ONCE ONCE XX ; Start 01/08/19 at 15:00; Stop 01/08/19 at 15:01 Sodium Chloride 1,000 ml @ 100 mls/hr Q10H IV Last administered on 01/08/19at 03:30; Admin Dose 100 MLS/HR; Start 01/07/19 at 16:00 Ampicillin Sodium/ Sulbactam Sodium 100 ml @ 100 mls/hr Q6 IVPB ; Start 01/08/19 at 12:00 AKHIL VILLAFUERTE MD Jan 08, 2019 10:42
[2019-01-08] MEDS: AMPICILLIN/SULB 3 GM/NS (PMX) 100 ML IVPB SCH ×2 (13:00→18:50)
[2019-01-09] MEDS ORDERED: VANCOMYCIN 750 MG (PMX) 250 ML IVPB SCH
[2019-01-09] MEDS: AMPICILLIN/SULB 3 GM/NS (PMX) 100 ML IVPB SCH ×2 (00:10→05:33)
[2019-01-09 01:09] VITALS: BP 145/87; PULSE 71; RESP 16
[2019-01-09 07:39] VITALS: BP 121/78; PULSE 74; RESP 18
--- NOTE | 2019-01-09 08:37 | CONS ---
Assessment/Plan Assessment/Plan Hospital Course (Demo Recall) 1) R mastitis change cefepime to unasyn to cover for anaerobes continue with iv vanco get cx from milk/discharge from R breast get nasal swab for mrsa get u/s of R breast to look for abscess, if present she will need a surgical consult 01/09- improved fevers and breast pain GPC is present in breast discharge cx will change antibiotics to bactrim/augmentin if no MRSA then can d/c bactrim await breast U/S results and if neg for fluid collection of 3cm or more then can d/c to home ok for pt to breast feed on augmentin/bactrim Consultation Date/Type/Reason Admit Date/Time Jan 07, 2019 at 03:45 Initial Consult Date 01/08/19 Type of Consult ID Date/Time of Note DATE: 01/09/19 TIME: 08:29 24 HR Interval Summary Free Text/Dictation pt is feeling better no further fevers no pain to breast pt is having diarrhea but no cramping Exam/Review of Systems Exam Vitals Vital Signs Date Temp Pulse Resp B/P (MAP) Pulse Ox O2 O2 Flow FiO2 Time Delivery Rate 01/09/19 98.2 74 18 121/78 98 07:39 (92) 01/09/19 Room Air 01:09 01/08/19 2.0 20:00 Intake and Output 01/08/19 01/08/19 01/09/19 1414:59 22:59 06:59 IntakeIntake Total 350 ml 2550 ml 1150 ml BalanceBalance 350 ml 2550 ml 1150 ml Constitutional: alert, oriented ENMT: mucosa pink and moist Respiratory: clear to auscultation Cardiovascular: regular rate and rhythm Results Result Diagram: 01/09/19 0444 01/09/19 0444 Results 24hrs Laboratory Tests Test 01/08/19 15:12 01/09/19 04:44 Vancomycin Level Trough 16.4 White Blood Count 9.3 # Red Blood Count 4.23 Hemoglobin 12.3 Hematocrit 37.2 Mean Corpuscular Volume 87.9 Mean Corpuscular Hemoglobin 29.1 Mean Corpuscular Hemoglobin Concent 33.1 Red Cell Distribution Width 13.2 Platelet Count 255 # Mean Platelet Volume 10.9 H Immature Granulocytes % 0.800 H Neutrophils % 48.4 Lymphocytes % 29.6 Monocytes % 9.3 Eosinophils % 11.4 H Basophils % 0.5 Nucleated Red Blood Cells % 0.0 Immature Granulocytes # 0.070 H Neutrophils # 4.5 Lymphocytes # 2.7 Monocytes # 0.9 Eosinophils # 1.1 H Basophils # 0.1 Nucleated Red Blood Cells # 0.0 Sodium Level 145 H Potassium Level 3.9 Chloride Level 110 Carbon Dioxide Level 22 Anion Gap 13 Blood Urea Nitrogen 11 Creatinine 0.68 Est Glomerular Filtrat Rate mL/min > 60 Glucose Level 107 Calcium Level 9.8 Phosphorus Level 4.7 Magnesium Level 1.8 Total Bilirubin 0.2 Direct Bilirubin 0.00 Indirect Bilirubin 0.2 Aspartate Amino Transf (AST/SGOT) 24 Alanine Aminotransferase (ALT/SGPT) 39 Alkaline Phosphatase 69 Total Protein 7.3 Albumin 3.6 Globulin 3.70 H Albumin/Globulin Ratio 0.97 Medications Medication Current Medications IV Flush (NS 3 ml) 3 ml PER PROTOCOL IV ; Start 01/07/19 at 03:30 Ondansetron HCl (Zofran Inj) 4 mg Q6H PRN IV NAUSEA/VOMITING; Start 01/07/19 at 03:30 Acetaminophen (Tylenol Tab) 650 mg Q6H PRN PO .PAIN 1-3 OR TEMP Last administered on 01/07/19at 10:17; Admin Dose 650 MG; Start 01/07/19 at 03:30 Ibuprofen (Motrin) 600 mg Q6H PRN PO .PAIN 1-3 OR TEMP Last administered on 01/07/19at 15:46; Admin Dose 600 MG; Start 01/07/19 at 03:30 Docusate Sodium (Colace) 100 mg Q12H PRN PO .CONSTIPATION; Start 01/07/19 at 03:30 Bisacodyl (Dulcolax) 5 mg DAILY PRN PO .CONSTIPATION; Start 01/07/19 at 03:30 Vancomycin HCl (Vanco Iv Per Pharmacy) VANCOMYCIN PER PHARMACY PER PROTOCOL XX ; Start 01/07/19 at 10:30 Sodium Chloride 1,000 ml @ 100 mls/hr Q10H IV Last administered on 01/08/19at 21:52; Admin Dose 100 MLS/HR; Start 01/07/19 at 16:00 Ampicillin Sodium/ Sulbactam Sodium 100 ml @ 100 mls/hr Q6 IVPB Last administered on 01/09/19at 05:33; Admin Dose 100 MLS/HR; Start 01/08/19 at 12:00 Vancomycin/Sodium Chloride 250 ml @ 125 mls/hr Q8H IVPB Last administered on 01/09/19at 01:17; Admin Dose 125 MLS/HR; Start 01/09/19 at 00:00 AKHIL VILLAFUERTE MD Jan 09, 2019 08:37
[2019-01-09] MEDS ORDERED: AMOXICILLIN/CLAV 875 MG TAB PO SCH (09:00)
[2019-01-09] MEDS ORDERED: TRIMETHOPRIM/SULFAMETHOX (DS) TAB PO SCH (09:00)
[2019-01-09] MEDS ORDERED: L ACIDOPHIL/B LACTIS/B LONGUM CAPSULE PO SCH (09:00)
[2019-01-09] MEDS: SOD CHLORIDE 0.9% 1,000 ML IV SCH (12:11)
[2019-01-09] MEDS ORDERED: AMOXICILLIN 500 MG CAP PO SCH (14:00)
[2019-01-09 15:52] VITALS: BP 119/68; PULSE 82; RESP 19
--- NOTE | 2019-01-09 18:28 | DS ---
Date/Time of Note Date/Time of Note DATE: 01/09/19 TIME: 18:25 Discharge Summary Admission/Discharge Info Admit Date/Time Jan 07, 2019 at 03:45 Discharge Date/Time Patient Condition: Stable Consults Dr Fournier Procedures X-ray: No acute process Ultrasound breast: No abscess Blood cultures [phone] Hx of Present Illness 28-year-old female admitted with right breast infection Hospital Course Hospitalist Coverage/hospital course 28-year-old female admitted with right breast infection/sepsis. she is , concern for abscess. Patient was seen by ID. Ultrasound did not show any abscess. Patient will be treated for mastoiditis. Stable for discharge on 7 days of Augmentin and Bactrim. MRSA nares negative; culture showing 1+ coag negative staph. Final cultures pending. Discharge home, and if Cx is negative over the next few days for mrsa, primary care may DC Bactrim. Sepsis stable resolved Right breast mastoiditis stable improving status okay to breast-feed on present antibiotics Anemia Home Meds Reported Medications Vits W-Ca,Fe,Fa(<1MG) () 1 Tab Tablet, 1 TAB PO DAILY 11/07/11 Discontinued Reported Medications Ferrous Sulfate (Iron) 1 Tab Tablet, 1 TAB PO DAILY 11/07/11 Primary Care Provider Timoteo Feng MD Time spent on discharge: > 30 minutes Pending Labs Laboratory Tests Test 01/09/19 04:44 White Blood Count 9.3 10^3/ul (4.8-10.8) Red Blood Count 4.23 10^6/ul (4.20-5.40) Hemoglobin 12.3 g/dl (12.0-16.0) Hematocrit 37.2 % (37.0-47.0) Mean Corpuscular Volume 87.9 fl (82.0-101.0) Mean Corpuscular Hemoglobin 29.1 pg (29.0-33.0) Mean Corpuscular Hemoglobin Concent 33.1 g/dl (32.0-37.0) Red Cell Distribution Width 13.2 % (11.5-14.5) Platelet Count 255 10^3/UL (140-415) Mean Platelet Volume 10.9 fl (7.4-10.4) Immature Granulocytes % 0.800 % (0.001-0.429) Neutrophils % 48.4 % (39.0-77.0) Lymphocytes % 29.6 % (15.0-51.0) Monocytes % 9.3 % (0.0-11.0) Eosinophils % 11.4 % (0.0-7.0) Basophils % 0.5 % (0.0-2.0) Nucleated Red Blood Cells % 0.0 /100WBC (0.0-0.0) Immature Granulocytes # 0.070 10^3/ul (0.0-0.031) Neutrophils # 4.5 10^3/ul (1.6-7.5) Lymphocytes # 2.7 10^3/ul (0.8-2.9) Monocytes # 0.9 10^3/ul (0.3-0.9) Eosinophils # 1.1 10^3/ul (0.0-0.5) Basophils # 0.1 10^3/ul (0.0-0.1) Nucleated Red Blood Cells # 0.0 10^3/ul (0.0-0.0) Sodium Level 145 mmol/L (135-144) Potassium Level 3.9 mmol/L (3.5-5.1) Chloride Level 110 mmol/L (97-110) Carbon Dioxide Level 22 mmol/L (21-31) Anion Gap 13 (5-13) Blood Urea Nitrogen 11 mg/dl (7-20) Creatinine 0.68 mg/dl (0.44-1.00) Est Glomerular Filtrat Rate mL/min > 60 mL/min (>60) Glucose Level 107 mg/dl (70-220) Calcium Level 9.8 mg/dl (8.4-10.2) Phosphorus Level 4.7 mg/dl (2.5-4.9) Magnesium Level 1.8 mg/dl (1.7-2.5) Total Bilirubin 0.2 mg/dl (0.2-1.3) Direct Bilirubin 0.00 mg/dl (0.00-0.20) Indirect Bilirubin 0.2 mg/dl (0-1.1) Aspartate Amino Transf (AST/SGOT) 24 IU/L (15-46) Alanine Aminotransferase (ALT/SGPT) 39 IU/L (13-69) Alkaline Phosphatase 69 IU/L (42-121) Total Protein 7.3 g/dl (6.1-8.1) Albumin 3.6 g/dl (3.3-4.9) Globulin 3.70 g/dl (1.3-3.2) Albumin/Globulin Ratio 0.97 BRADY ALONSO MD Jan 09, 2019 18:28
--- NOTE | 2019-01-09 18:29 | PDOCDIS ---
Discharge Instructions CONDITION [id number] Patient Condition: Obtaw3s Stable HOME CARE INSTRUCTIONS: [id number] Diet Instructions: [id number] Regular ACTIVITY: [id number] Activity Restrictions: [id number] No Restrictions Slowly Increase Activity [id number] Bathing Restrictions: Mezyw9w Shower FOLLOW UP/APPOINTMENTS Follow-up Plan appt Primary 1wk Mess as needed BRADY ALONSO MD Jan 09, 2019 18:29
[2019-01-09] MEDS ORDERED: SULF-182 PO (18:30)
[2019-01-09] MEDS ORDERED: ACET325T33 PO (18:30)
[2019-01-09] MEDS ORDERED: AMOX1TAB10 PO (18:30)
[2019-01-09 19:24] VITALS: BP 104/55; PULSE 56; RESP 16
== END 2019-01-09 19:54 | disposition home or self-care (01) | DRG 776 ==
LOC: E/R 21:34 → TEL 01-07 03:06 → OBSVTOIN 01-07 03:45 → TEL 01-07 05:53 → E/R 01-07 06:16 → MS1 01-08 18:30
PROVIDERS: ADMIT Family Medicine; ATTEND Internal Medicine
DX: O85 Puerperal sepsis (principal); R65.20 Severe sepsis without septic shock; N39.0 Urinary tract infection, site not specified; O91.23 Nonpurulent mastitis associated with lactation; O99.215 Obesity complicating the puerperium; O90.81 Anemia of the puerperium
CPT/HCPCS: 36415; 71045; 76642; 80053; 80202; 81001; 83605; 83735; 84100; 84484; 85025; 85610; 85730; 87040; 87070; 87081; 87086; 87400; 93005; 96361; 96365; G0378; J0131; J0295; J0692; J0696; J3370; J7030; J7040